=== PATIENT | male | born 1980 | race Caucasian/White ===

== ENCOUNTER 2019-04-23 02:06 | Emergency (ER) | payer OTHER, SELFPAY | END 2019-04-23 04:10 | disposition home or self-care (01) | LOC: ERS 02:06 | DX: S22.081A Stable burst fracture of T11-T12 vertebra, initial encounter for closed fracture (principal); F17.210 Nicotine dependence, cigarettes, uncomplicated; W17.89XA Other fall from one level to another, initial encounter | CPT/HCPCS: 99283 ==